=== PATIENT | male | born 1950 | race Caucasian/White ===

== ENCOUNTER 2017-11-08 15:35 | Day surgery (SDC) | payer BC ==
[2017-11-08] MEDS ORDERED: Lidocaine 2% JELLY* 6 ML JELLY TOPICAL ONE (16:23)
[2017-11-08] MEDS ORDERED: Lidocaine 1% INJ* 10 MG/ML 30 ML SDV ONE (16:23)
[2017-11-08] MEDS ORDERED: Midazolam* 1 MG/ML 2 ML VIAL (2 MG) ONE (16:32)
[2017-11-08] MEDS ORDERED: fentaNYL* 50 MCG/ML 2 ML VIAL (100 MCG VIAL) ONE (16:32)
[2017-11-08] MEDS ORDERED: Propofol* 10 MG/ML 20 ML BTL IV PUSH ONE (17:02)
[2017-11-08] MEDS ORDERED: Lidocaine 2% PF * 5 ML VIAL ONE (17:02)
[2017-11-08] MEDS ORDERED: Ondansetron INJ* 2 MG/ML VIAL IV PRN (17:11)
[2017-11-08] MEDS ORDERED: oxyCODONE/Acetamin 5/325 MG* TAB PO PRN (17:11)
[2017-11-08] MEDS ORDERED: DiMENhydriNATE IV* 50 MG/ML VIAL IV PUSH PRN (17:11)
[2017-11-08] MEDS ORDERED: Naloxone* 0.4 MG/ML 1 ML VIAL IV PRN (17:11)
[2017-11-08] MEDS ORDERED: HYDROcodone/ACETAMIN 5-325 MG* 1 TAB PO PRN (17:11)
[2017-11-08] MEDS ORDERED: fentaNYL* 50 MCG/ML 2 ML VIAL (100 MCG VIAL) IV PRN (17:11)
[2017-11-08] MEDS ORDERED: Lidocaine 1% MPF wEPI 200,000* 30 ML SDV ONE (17:18)
--- NOTE | 2017-11-08 17:40 | BRIEFOPN ---
Brief Operative Note - Surgery Procedures: Procedures OPERATIVE REPORT PRE-Anorectal ulcer and rectal bleeding POST-OP: Same, Anorectal mass PROCEDURE: Anorectal exam under anesthesia with biopsies of anal canal and distal rectal mass SURGEON: MD Vincent ANESTHESIA:Local with MAC Dr. Ceja ASST: none IVF: min EBL:min SPECIMEN: Portion of mass to pathology DRAIN: none WOUND CLASS: 4 COMPLICATIONS: none TO PACU
[2017-11-08] MEDS ORDERED: oxyCODONE/Acetamin 5/325 MG* TAB ONE (18:51)
[2017-11-08 18:54] VITALS: BP 124/66
--- NOTE | 2017-11-09 16:03 | OP ---
CC: Dr. Sourav Silva * DATE OF OPERATION: 11/08/17 - [facility] DATE OF : 54 SURGEON: Louis Kaur MD [facility]ST SECOND JOBS: None. ANESTHESIOLOGIST: Dr. Ceja. ANESTHESIA: Local with monitored anesthesia care. PRE-OP DIAGNOSIS: Anal canal ulceration with rectal bleeding. POST-OP DIAGNOSES: 1. Anal canal ulceration with rectal bleeding. 2. Apparent anorectal mass with ulceration. OPERATIVE PROCEDURE: Anorectal exam under anesthesia with biopsy of the anorectal mass. ESTIMATED BLOOD LOSS: Minimal. SPECIMENS: Portions of anal canal mass. COMPLICATIONS: None. DRAINS: None, although a 4x4 gauze was placed just into anal canal. BRIEF HISTORY: Mr. Adonay Ballesteros is a 67-year-old gentleman, HIV positive, who recently had anal canal bleeding with some discomfort that has not healed. He was noted on a limited exam in the office to have a ulceration at about 2 to 3 o'clock position at the anal verge extending into the anal canal and due to discomfort this was not a complete exam. At this point, it is felt that biopsies to rule out malignancy are essential and he is being taken to operating room today for an exam under anesthesia with planned biopsies of this lesion. DESCRIPTION OF PROCEDURE: Written informed consent was obtained. The patient was taken to the operating room, placed in the prone jackknife position. Intravenous sedation was administered and sequential compression devices were placed. The perineum and buttocks were prepped and draped in the usual sterile fashion. Time-out verification was completed. Upon evaluation, it was noted that at about 2 to 3 o'clock position there was a wide crevasse type lesion with a heaped up surrounding tissue starting on the anal verge skin extending into the anal canal and also into the distal rectum. This was quite firm, bled easily and was friable. Multiple biopsies were taken using Allis clamp as well as cautery and a scalpel. These were sent and labeled as such. Examination of the remaining anal canal appeared to be unremarkable. There is no significant hemorrhoidal disease in these areas. Hemostasis was assured and lidocaine gel was placed in the anal canal and a 4x4 gauze was used for packing and for hemostatic purposes. Dry sterile dressings were applied. The patient tolerated the procedure well and was taken to recovery room in stable condition. [id number]/[facility] #: [id number] JIMENEZ
== END 2017-11-08 19:01 | disposition home or self-care (01) ==
LOC: OR 15:35
PROVIDERS: ATTEND Surgery
DX: C21.1 Malignant neoplasm of anal canal (principal); Z21 Asymptomatic human immunodeficiency virus [HIV] infection status; K62.5 Hemorrhage of anus and rectum; G47.33 Obstructive sleep apnea (adult) (pediatric); K21.9 Gastro-esophageal reflux disease without esophagitis
CPT/HCPCS: 88305; 88342; A9270-GY; J2001; J2250; J2704; J3010

== ENCOUNTER 2019-11-21 08:02 | Emergency (ER) | payer BC ==
--- NOTE | 2019-11-21 08:28 | ED ---
Lower Extremity - HPI Summary HPI Summary: Patient is a 69 y/o M presenting to [facility] with complaints of BLE pain and weakness that has been present for the past 2-3 weeks. He states that the pain has been intermittent and waxes and wanes in severity. He also notes that the BLE pain will vary in its location. Pain is characterized as a tightness/ soreness; patient characterizes his weakness as feeling similar to having "overexercised". He notes that he had shovelled snow on 11/04/19 but denies any recent injuries or falls. Swelling, erythema, CP, abdominal pain, fever, cough, chills are denied. However, he does note that he has been SOB with exertion recently. No Hx of sciatica, HTN, diabetes, cardiac disease, rhabdomyolysis, DVT , PE noted. He does have osteoarthritis in his left knee as well as Hx of HLD for which he is on a statin. Home medications and allergies are reviewed. Home Medications Medication Instructions Recorded Confirmed Type Rosuvastatin Calcium [Crestor] 20 mg PO DAILY 08/01/19 11/21/19 History Elviteg/Cob/Emtri/Tenof Alafen 1 tab PO DAILY 11/21/19 11/21/19 History [Genvoya [id number] mg] Finasteride TAB* [Proscar TAB*] 1 mg PO DAILY 11/21/19 11/21/19 History Omeprazole CAP (NF) [Prilosec CAP* 20 mg PO DAILY 11/21/19 11/21/19 History 20 MG] Sertraline* [Zoloft*] 25 mg PO DAILY 11/21/19 11/21/19 History Sulfamethox/Trimethoprim DS* 1 tab PO DAILY 11/21/19 11/21/19 History [Bactrim DS 800/160 TAB*] Tamsulosin CAP* [Flomax CAP*] 0.4 mg PO DAILY 11/21/19 11/21/19 History - History of Current Complaint Chief Complaint: EDExtremityLower Stated Complaint: BILAT LEG PAIN/WEAKNESS PER PT Time Seen by Provider: 11/21/19 08:17 Hx Obtained From: Patient Onset of Pain: Prior to Arrival Onset/Duration: Still Present Severity Currently: Mild Pain Intensity: 3 Pain Scale Used: 0-10 Numeric Timing: Constant, Lasting Weeks Location: Is Discrete @ - BLE Associated Signs And Symptoms: Positive: Weakness - Allergies/Home Medications Allergies/Adverse Reactions: Allergies Allergy/AdvReac Type Severity Reaction Status Date / Time clindamycin [From Cleocin] Allergy Severe Rash And Verified 11/17/17 14:57 Itching Home Medications: Home Medications Rosuvastatin Calcium [Crestor] 20 mg PO DAILY 08/01/19 [History Confirmed ] Elviteg/Cob/Emtri/Tenof Alafen [Genvoya [id number] mg] 1 tab PO DAILY [History Confirmed 11/21/19] Finasteride TAB* [Proscar TAB*] 1 mg PO DAILY 11/21/19 [History Confirmed ] Omeprazole CAP (NF) [Prilosec CAP* 20 MG] 20 mg PO DAILY 11/21/19 [History Confirmed 11/21/19] Sertraline* [Zoloft*] 25 mg PO DAILY 11/21/19 [History Confirmed 11/21/19] Sulfamethox/Trimethoprim DS* [Bactrim DS 800/160 TAB*] 1 tab PO DAILY 11/21/19 [ History Confirmed 11/21/19] Tamsulosin CAP* [Flomax CAP*] 0.4 mg PO DAILY 11/21/19 [History Confirmed ] PMH/Surg Hx/FS Hx/Imm Hx Endocrine/Hematology History: Denies: Hx Diabetes Cardiovascular History: Reports: Hx Hypercholesterolemia Denies: Hx Deep Vein Thrombosis, Hx Embolism, Hx Hypertension, Hx Pacemaker/ ICD Respiratory History: Reports: Hx Sleep Apnea - current biPAP user GI History: Reports: Hx Gastroesophageal Reflux Disease History: Denies: Hx Renal Disease Musculoskeletal History: Reports: Hx Arthritis, Other Musculoskeletal History - no Hx of Sensory History: Denies: Hx Contacts or Glasses, Hx Hearing Aid Opthamlomology History: Denies: Hx Contacts or Glasses Psychiatric History: Denies: Hx Panic Disorder - Cancer History Cancer Type, 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 Ramírez - sedation. 1998- gum [facility] with [facility]ation-[facility]. bunion-right foot. biopsy of rectal lesion Hx Anesthesia Reactions: No Infectious Disease History: No Infectious Disease History: Reports: Hx Hepatitis - 1993-hep A Denies: Traveled Outside the [place] in Last 30 Days - Family History Known Family History: Positive: Other - no FMHx of CVA - Social History Alcohol Use: Occasionally Substance Use Type: Reports: Marijuana Substance Use Comment - Amount & Last Used: 2 cups coffee daily; approx 2 diet sodas daily Smoking Status (MU): Never Smoked Tobacco Review of Systems Negative: Fever, Chills Negative: Chest Pain Positive: Shortness Of Breath - with exertion . Negative: Cough Negative: Abdominal Pain Positive: Myalgia - BLE. Negative: Edema Skin: Other - negative - erythema Positive: Weakness - BLE All Other Systems Reviewed And Are Negative: Yes Physical Exam - Summary Physical Exam Summary: Constitutional: Well-developed, Well-nourished, Alert. (-) Distressed Skin: Warm, Dry; No Erythema HENT: Normocephalic; Atraumatic Eyes: Conjunctiva normal Neck: Musculoskeletal ROM normal neck. (-) JVD, (-) Stridor, (-) Tracheal deviation Cardio: Rhythm regular, rate normal, Heart sounds normal; Intact distal pulses; The pedal pulses are 2+ and symmetric. Radial pulses are 2+ and symmetric. (-) Murmur Pulmonary/Chest wall: Effort normal. (-) Respiratory distress, (-) Wheezes, (-) Rales Abd: Soft, (-) tenderness, (-) Distension, (-) Guarding, (-) Rebound Musculoskeletal: No swelling, contusions, or pain on palpation of BLE Lymph: (-) Cervical adenopathy Neuro: Alert, Oriented x3 Psych: Mood and affect Normal Triage Information Reviewed: Yes Vital Signs On Initial Exam: Initial Vitals Temp Pulse Resp BP Pulse Ox 97.1 F 77 18 162/90 98 11/21/19 08:06 11/21/19 08:06 11/21/19 08:06 11/21/19 08:06 11/21/19 08:06 Vital Signs Reviewed: Yes Procedures - Sedation Patient Received Moderate/Deep Sedation with Procedure: No Diagnostics - Vital Signs Vital Signs Temp Pulse Resp BP Pulse Ox 11/21/19 08:06 97.1 F 77 18 162/90 98 - Laboratory Result Diagrams: 11/21/19 08:35 11/21/19 08:35 Lab Statement: Any lab studies that have been ordered have been reviewed, and results considered in the medical decision making process. - EKG 0842 Cardiac Rate: NL - rate of 68 BPM EKG Rhythm: Sinus Rhythm Summary of EKG Findings: EKG showed sinus rhythm with rate of 68 BPM, no ischemic changes noted. ED physician has reviewed and interpreted this EKG. Lower Extremity Course/Dx - Course Course Of Treatment: Patient is a 69 y/o M presenting to [facility] with complaints of BLE pain and weakness that has been present for the past 2-3 weeks. He states that the pain has been intermittent and waxes and wanes in severity. He also notes that the BLE pain will vary in its location. Pain is characterized as a tightness/soreness; patient characterizes his weakness as feeling similar to having "overexercised". He notes that he had shovelled snow on 11/04/19 but denies any recent injuries or falls. Swelling, erythema, CP, abdominal pain, fever, cough, chills are denied. However, he does note that he has been SOB with exertion recently. No Hx of sciatica, HTN, diabetes, cardiac disease, rhabdomyolysis, DVT, PE noted. He does have osteoarthritis in his left knee as well as Hx of HLD for which he is on a statin. No erythema, swelling, contusions , or pain on palpation of BLE noted. Bloodwork was obtained, abnormal values include WBC 3.3, Hgb 13.6, Hct 40, MPV 6.9, absolute lymphs 0.7, glucose 105. EKG showed sinus rhythm with rate of 68 BPM, no ischemic changes noted. No objective findings on exam. No leg swelling, or erythema. N/V intact. Normal gait. Patient was discharged to home and will followup with PCP. - Diagnoses Provider Diagnoses: Bilateral lower extremity pain Discharge ED - Sign-Out/Discharge Documenting (check all that apply): Patient Departure - discharge - Discharge Plan Condition: Stable Disposition: HOME Patient Education Materials: Leg Pain (ED) Referrals: Sourav Silva MD [Primary Care Provider] - 3 Days Additional Instructions: PLEASE RETURN FOR ANY NEW OR CONCERNING SYMPTOMS. PLEASE FOLLOW UP WITH YOUR PRIMARY CARE PHYSICIAN WITHIN THREE DAYS. - Billing Disposition and Condition Condition: STABLE Disposition: Home - Attestation Statements Document Initiated by Scribe: Yes Documenting Scribe: CALVIN ZAPATA Provider For Whom Scribe is Documenting (Include Credential): NENA PRYOR, Scribe Attestation: I, CALVIN ZAPATA, scribed for NENA PRYOR DO on 11/21/19 at 1300. Scribe Documentation Reviewed: Yes Provider Attestation: The documentation as recorded by the jeanineibCALVIN galindo accurately reflects the service I personally performed and the decisions made by me, NENA PRYOR DO Status of Scribe Document: Viewed
[2019-11-21 08:51] LABS: ABS Eosinophils 0.1 10^3/ul (0-0.6); ABS Lymphocytes 0.7 10^3/ul (1.0-4.8); ABS Monocytes 0.4 10^3/ul (0-0.8); ABS Neutrophils 2.1 10^3/ul (1.5-7.7); Hematocrit 40 % (42-52); Hemoglobin 13.6 g/dL (14.0-18.0); Lymphocyte % 21.1 %; Mean Corpuscular HGB Conc 34 g/dL (31-36); Mean Corpuscular Hemoglobin 31 pg (27-31); Mean Corpuscular Volume 90 fL (80-94); Mean Platelet Volume 6.9 fL (7.4-10.4); Platelet Count 239 10^3/uL (150-450); Red Blood Count 4.45 10^6 /uL (4.18-5.48); Red Cell Distribution Width 14 % (10-15); White Blood Count 3.3 10^3/uL (3.5-10.8)
[2019-11-21 09:02] LABS: Albumin 3.9 g/dL (3.2-5.2); Albumin/Globulin Ratio 1.4 (1-3); C Reactive Protein 3.12 mg/L (<8.01); Calcium 8.6 mg/dL (8.6-10.3); EGFR African American 95.7 (>60); EGFR Non-African American 79.1 (>60); Globulin 2.8 g/dL (2-4); Total Bilirubin 0.3 mg/dL (0.2-1.0); Total Protein 6.7 g/dL (6.4-8.9)
[2019-11-21 10:06] VITALS: BP 0/0
[2019-11-21 10:18] LABS: Erythrocyte Sed Rate 10 mm/Hr (0-19)
== END 2019-11-21 10:05 | disposition home or self-care (01) ==
LOC: ED 08:02
DX: M79.605 Pain in left leg (principal); M79.604 Pain in right leg; R53.1 Weakness; M17.12 Unilateral primary osteoarthritis, left knee; R06.09 Other forms of dyspnea; E78.5 Hyperlipidemia, unspecified; G47.30 Sleep apnea, unspecified; K21.9 Gastro-esophageal reflux disease without esophagitis; Z88.1 Allergy status to other antibiotic agents
CPT/HCPCS: 36415; 80053; 82550; 85025; 85652; 86140; 93005; 99283

== ENCOUNTER 2020-09-17 09:30 | Observation (INO) ==
[~2020-09-17 09:30] MED LIST: Buffered Lidocaine 1% SYRIN 1 ml INTRADERM ONE; Lactated Ringers 1000 ml BAG 1,000 ML IV SCH; Sodium Citrate/Citric Acid LIQ 15 ML UDC PO ONE
[2020-09-17] MEDS ORDERED: ceFAZolin 2 GM PREMIX 2 GM/50 ML BAG ONE (12:53)
[2020-09-17] MEDS ORDERED: Sodium Citrate/Citric Acid LIQ 15 ML UDC ONE (12:53)
[2020-09-17] MEDS ORDERED: Buffered Lidocaine 1% SYRIN 1 ml INTRADERM ONE (12:54)
[2020-09-17] MEDS ORDERED: Propofol 10 mg/ml 100 ML BTL 100 ML ONE (13:38)
[2020-09-17] MEDS ORDERED: Bupivacaine 0.5% SDV PF 30ML VIAL ONE (13:38)
[2020-09-17] MEDS ORDERED: ROPIVACAINE 5 MG/ML 30 ML BTL (0.5%) ONE (13:39)
[2020-09-17] MEDS ORDERED: Midazolam 2 mg/2 ml VIAL 1 mg/ml 2 ml VIAL (2 mg) ONE (14:05)
[2020-09-17] MEDS ORDERED: Glycopyrrolate IV 0.2 MG/ML 1 ML VIAL ONE (15:18)
[2020-09-17] MEDS ORDERED: Ondansetron 4 mg VIAL 2 MG/ML 2 ml VIAL IV PRN ×2 (15:33→15:43)
[2020-09-17] MEDS ORDERED: HYDROmorphone 1 MG/1 ML SYRINGE IV PRN (15:33)
[2020-09-17] MEDS ORDERED: Naloxone 0.4 mg VIAL 0.4 mg/ml 1 ml VIAL IV PRN (15:33)
[2020-09-17] MEDS ORDERED: diPHENhydraMINE 25 mg TAB PO PRN (15:43)
[2020-09-17] MEDS ORDERED: Ondansetron ODT 4 mg TAB 4 MG TAB PO PRN (15:43)
[2020-09-17] MEDS ORDERED: diPHENhydraMINE IV 50 MG/ML 1 ml VIAL (BENADRYL) IV PRN (15:43)
[2020-09-17] MEDS ORDERED: Lactulose 30 ml UDC PO PRN (15:43)
[2020-09-17] MEDS ORDERED: Morphine 2 MG/ML SYRINGE IV PRN (15:43)
[2020-09-17] MEDS ORDERED: Magnesium Hydroxide LIQ 30 ML UDC PO PRN (15:43)
[2020-09-17] MEDS ORDERED: Phenylephrine IV 10 MG/ML 1 ml VIAL ONE (15:47)
[2020-09-17] MEDS ORDERED: fentaNYL 100 mcg/2 ml 50 MCG/ML VIAL ONE (17:35)
[2020-09-17] MEDS: fentaNYL 100 mcg/2 ml 50 MCG/ML VIAL IV PRN ×3 (17:36→18:18)
[2020-09-17] MEDS ORDERED: PTO:Bictegravir/Emtricit/Tenofov 1 TABLET PO SCH (18:00)
[2020-09-17] MEDS: Lactated Ringers 1000 ml BAG 1,000 ML IV SCH (18:39)
[2020-09-17] MEDS: Magnesium Hydroxide LIQ 30 ML UDC PO SCH (20:23)
[2020-09-17] MEDS ORDERED: NS 0.9% 50 ML 50 ML ONE (21:41)
[2020-09-17] MEDS: ceFAZolin 1 GM ADVAN 1 GM in NS 0.9% 50 ML 50 ML IVPB SCH (21:48)
[2020-09-18] MEDS: Lactated Ringers 1000 ml BAG 1,000 ML IV SCH (04:31)
[2020-09-18] MEDS: ceFAZolin 1 GM ADVAN 1 GM in NS 0.9% 50 ML 50 ML IVPB SCH ×2 (05:45→13:41)
[2020-09-18 06:52] LABS: Hematocrit 35 % (42-52); Mean Platelet Volume 7.2 fL (7.4-10.4); Platelet Count 193 10^3/uL (150-450)
[2020-09-18 07:26] LABS: BUN/Creatinine Ratio 12.1 (8-20); Calcium 8.3 mg/dL (8.6-10.3); EGFR Non-African American 62.8 (>60); Potassium 4.6 mmol/L (3.5-5.0)
[2020-09-18] MEDS ORDERED: Vitamin THERAPEUTIC TAB PO SCH (09:00)
[2020-09-18] MEDS ORDERED: Finasteride(ALOPECIA) 1 mg(NF) PO SCH (09:00)
[2020-09-18] MEDS ORDERED: Sulfamethox/Trimethoprim DS TAB 800/160 mg PO SCH (09:00)
[2020-09-18] MEDS: Magnesium Hydroxide LIQ 30 ML UDC PO SCH (09:33)
[2020-09-18 11:09] VITALS: BP 139/60
== END 2020-09-18 14:25 | disposition home or self-care (01) ==
LOC: INTOOBSV 12:58 → AA 12:58 → SSU 15:43
PROVIDERS: ADMIT Orthopaedic Surgery Adult Reconstructive Orthopaedic Surgery; ATTEND Orthopaedic Surgery Adult Reconstructive Orthopaedic Surgery

== ENCOUNTER 2021-03-20 09:00 | Observation (INO) ==
[2021-04-17] MEDS ORDERED: Buffered Lidocaine 1% SYRIN 1 ml INTRADERM ONE (06:00)
[2021-04-17] MEDS ORDERED: Lactated Ringers 1000 ml BAG 1,000 ML IV SCH (06:00)
[2021-04-17] MEDS ORDERED: ceFAZolin 2 GM in NS PREMIX 2 GM/100 ML BAG IVPB ONE (12:57)
[2021-04-17] MEDS ORDERED: ceFAZolin 1 GM ADVAN 1 GM ADDV.VIAL IVPB ONE (12:57)
[2021-04-17] MEDS ORDERED: Dexamethasone IV 4 MG/ML VIAL 1 ml VIAL ONE ×2 (13:24→15:47)
[2021-04-17] MEDS ORDERED: Bupivacaine 0.5% SDV PF 30ML VIAL ONE (13:24)
[2021-04-17] MEDS ORDERED: Midazolam 2 mg/2 ml VIAL 1 mg/ml 2 ml VIAL (2 mg) ONE (13:57)
[2021-04-17] MEDS ORDERED: Ondansetron 4 mg VIAL 2 MG/ML 2 ml VIAL ONE (13:58)
[2021-04-17] MEDS ORDERED: fentaNYL 100 mcg/2 ml 50 MCG/ML VIAL ONE (13:58)
[2021-04-17] MEDS ORDERED: Propofol 10 mg/ml 100 ML BTL 100 ML ONE (14:02)
[2021-04-17] MEDS ORDERED: Lidocaine 1% MPF 5 ML VIAL ONE (14:05)
[2021-04-17] MEDS ORDERED: Ropivacaine 5 MG/ML 20 ML VIAL 0.5% (100 MG) ONE (14:30)
[2021-04-17] MEDS ORDERED: Magnesium Hydroxide LIQ 30 ML UDC PO PRN (15:50)
[2021-04-17] MEDS ORDERED: Morphine 2 MG/ML SYRINGE IV PRN (15:50)
[2021-04-17] MEDS ORDERED: diPHENhydraMINE 25 mg TAB PO PRN (15:50)
[2021-04-17] MEDS ORDERED: Ondansetron ODT 4 mg TAB 4 MG TAB PO PRN (15:50)
[2021-04-17] MEDS ORDERED: Ondansetron 4 mg VIAL 2 MG/ML 2 ml VIAL IV PRN (15:50)
[2021-04-17] MEDS ORDERED: diPHENhydraMINE IV 50 MG/ML 1 ml VIAL (BENADRYL) IV PRN ×2 (15:50→16:39)
[2021-04-17] MEDS ORDERED: Lactulose 30 ml UDC PO PRN (15:50)
[2021-04-17] MEDS ORDERED: Naloxone 0.4 mg VIAL 0.4 mg/ml 1 ml VIAL IV PRN (16:39)
[2021-04-17] MEDS ORDERED: fentaNYL 100 mcg/2 ml 50 MCG/ML VIAL IV PRN (16:39)
[2021-04-17] MEDS ORDERED: DiMENhydriNATE IV 50 mg/ml 1 ml VIAL IV PUSH PRN (16:39)
[2021-04-17] MEDS ORDERED: SILDENAFIL 25 MG PO PRN (19:01)
[2021-04-17] MEDS: Lactated Ringers 1000 ml BAG 1,000 ML IV SCH (20:38)
[2021-04-17] MEDS ORDERED: PTO:Bictegravir/Emtricit/Tenofov 1 TABLET PO SCH (21:00)
[2021-04-17] MEDS: Magnesium Hydroxide LIQ 30 ML UDC PO SCH (23:02)
[2021-04-18] MEDS: ceFAZolin 1 GM ADVAN 1 GM in NS 0.9% 50 ML 50 ML IVPB SCH ×3 (00:33→13:48)
[2021-04-18] MEDS: Lactated Ringers 1000 ml BAG 1,000 ML IV SCH (05:07)
[2021-04-18 06:36] LABS: Hematocrit 36 % (42-52); Hemoglobin 12.1 g/dL (14.0-18.0); Mean Platelet Volume 6.8 fL (7.4-10.4); Platelet Count 252 10^3/uL (150-450)
[2021-04-18 06:56] LABS: Calcium 8.6 mg/dL (8.6-10.3); EGFR Non-African American 75.2 (>60); Potassium 4.3 mmol/L (3.5-5.0)
[2021-04-18] MEDS ORDERED: Finasteride(ALOPECIA) 1 mg(NF) PO SCH (09:00)
[2021-04-18] MEDS ORDERED: Sulfamethox/Trimethoprim DS TAB 800/160 mg PO SCH (09:00)
[2021-04-18] MEDS ORDERED: Vitamin THERAPEUTIC TAB PO SCH (09:00)
[2021-04-18] MEDS: Magnesium Hydroxide LIQ 30 ML UDC PO SCH (09:05)
[2021-04-18 12:27] VITALS: BP 167/81
== END 2021-04-18 15:15 | disposition home or self-care (01) ==
LOC: AA 04-17 12:48 → INTOOBSV 04-17 12:48 → SSU 04-17 15:50
PROVIDERS: ADMIT Orthopaedic Surgery Adult Reconstructive Orthopaedic Surgery; ATTEND Orthopaedic Surgery Adult Reconstructive Orthopaedic Surgery

== ENCOUNTER 2021-11-06 12:00 | Observation (INO) ==
[2021-11-13] MEDS ORDERED: HYDROcodone/ACETAMIN 5/325 mg TAB PO PRN (10:20)
[2021-11-13] MEDS ORDERED: DiMENhydriNATE IV 50 mg/ml 1 ml VIAL IV PUSH ONE (10:20)
[2021-11-13] MEDS ORDERED: Ondansetron 4 mg VIAL 2 MG/ML 2 ml VIAL IV PRN (10:20)
[2021-11-13] MEDS ORDERED: Naloxone 0.4 mg VIAL 0.4 mg/ml 1 ml VIAL IV PRN (10:20)
[2021-11-13] MEDS ORDERED: fentaNYL 100 mcg/2 ml 50 MCG/ML VIAL IV PRN (10:20)
[2021-11-13] MEDS ORDERED: Metoclopramide 5 MG/ML VIAL (10 mg) IV PRN (10:20)
[2021-11-13] MEDS ORDERED: Buffered Lidocaine 1% SYRIN 1 ml INTRADERM ONE (10:20)
[2021-11-13] MEDS ORDERED: Lactated Ringers 1000 ml BAG 1,000 ML IV SCH (11:00)
[2021-11-14] MEDS ORDERED: Bupivacaine 0.5% SDV PF 30ML VIAL ONE (12:19)
[2021-11-14] MEDS ORDERED: Lidocaine 2% PF 5 ML VIAL ONE (12:19)
[2021-11-14] MEDS ORDERED: Propofol 10 MG/ML 20 ML BTL ONE (12:19)
[2021-11-14] MEDS ORDERED: Ondansetron 4 mg VIAL 2 MG/ML 2 ml VIAL ONE (12:19)
[2021-11-14] MEDS ORDERED: Dexamethasone IV 4 MG/ML VIAL 1 ml VIAL ONE (12:19)
[2021-11-14] MEDS ORDERED: fentaNYL 100 mcg/2 ml 50 MCG/ML VIAL ONE (12:19)
[2021-11-14] MEDS ORDERED: DiMENhydriNATE IV 50 mg/ml 1 ml VIAL ONE (12:22)
[2021-11-14] MEDS ORDERED: ceFAZolin 2 GM in NS PREMIX 2 GM/100 ML BAG IVPB ONE (12:22)
[2021-11-14] MEDS ORDERED: Ropivacaine 5 MG/ML 20 ML VIAL 0.5% (100 MG) ONE ×2 (13:10→14:15)
[2021-11-14] MEDS ORDERED: Magnesium Hydroxide LIQ 30 ML UDC PO PRN (15:05)
[2021-11-14] MEDS ORDERED: Ondansetron ODT 4 mg TAB 4 MG TAB PO PRN (15:05)
[2021-11-14] MEDS ORDERED: diPHENhydraMINE IV 50 MG/ML 1 ml VIAL (BENADRYL) IV PRN (15:05)
[2021-11-14] MEDS ORDERED: diPHENhydraMINE 25 mg TAB PO PRN (15:05)
[2021-11-14] MEDS ORDERED: Ondansetron 4 mg VIAL 2 MG/ML 2 ml VIAL IV PRN (15:05)
[2021-11-14] MEDS ORDERED: Lactulose 30 ml UDC PO PRN (15:05)
[2021-11-14] MEDS ORDERED: Lactated Ringers 1000 ml BAG 1,000 ML IV SCH (16:00)
[2021-11-14] MEDS ORDERED: PTO: Bictegravir/Emtricit/Tenofov 1 TABLET PO SCH (21:00)
[2021-11-14] MEDS: Magnesium Hydroxide LIQ 30 ML UDC PO SCH (21:03)
[2021-11-14] MEDS: ceFAZolin 1 GM ADVAN 1 GM in NS 0.9% 50 ML 50 ML IVPB SCH (22:29)
[2021-11-15 05:19] LABS: Hematocrit 33 % (42-52); Hemoglobin 11.1 g/dL (14.0-18.0); Platelet Count 249 10^3/uL (150-450)
[2021-11-15 05:34] LABS: Calcium 8.3 mg/dL (8.6-10.3); eGFR CKD-EPI 77.7 (>60)
[2021-11-15] MEDS: ceFAZolin 1 GM ADVAN 1 GM in NS 0.9% 50 ML 50 ML IVPB SCH ×2 (06:00→13:24)
[2021-11-15] MEDS: Magnesium Hydroxide LIQ 30 ML UDC PO SCH (08:35)
[2021-11-15] MEDS ORDERED: Sulfamethox/Trimethoprim DS TAB 800/160 mg PO SCH (09:00)
[2021-11-15] MEDS ORDERED: Vitamin THERAPEUTIC TAB PO SCH (09:00)
[2021-11-15] MEDS ORDERED: FINASTERIDE 1 MG PO SCH (09:00)
[2021-11-15 11:43] VITALS: BP 157/77
== END 2021-11-15 14:39 | disposition home or self-care (01) ==
LOC: AA 11-14 12:11 → INTOOBSV 11-14 12:11 → SSU 11-14 17:59
PROVIDERS: ADMIT Orthopaedic Surgery Adult Reconstructive Orthopaedic Surgery; ATTEND Orthopaedic Surgery Adult Reconstructive Orthopaedic Surgery

== ENCOUNTER 2022-04-23 07:30 | Observation (INO) ==
[2022-07-17] MEDS ORDERED: Buffered Lidocaine 1% SYRIN 1 ml INTRADERM ONE (06:00)
[2022-07-17] MEDS ORDERED: Lactated Ringers 1000 ml BAG 1,000 ML IV SCH ×2 (06:00→17:00)
[2022-07-17] MEDS ORDERED: Naloxone 0.4 mg VIAL 0.4 mg/ml 1 ml VIAL IV PRN (10:21)
[2022-07-17] MEDS ORDERED: HYDROmorphone 1 MG/1 ML SYRINGE IV PRN (10:21)
[2022-07-17] MEDS ORDERED: Prochlorperazine 5 mg/ml 2 ml VIAL (10 mg) IV PRN (10:21)
[2022-07-17] MEDS ORDERED: Lidocaine 2% PF 5 ML VIAL ONE (10:37)
[2022-07-17] MEDS ORDERED: Ketamine HCL 50 mg/ml 10 ml VIAL (500 MG) ONE (10:37)
[2022-07-17] MEDS ORDERED: Propofol 10 MG/ML 20 ML BTL ONE ×4 (10:40→16:10)
[2022-07-17] MEDS ORDERED: ceFAZolin 2 GM in NS PREMIX 2 GM/100 ML BAG IVPB ONE (12:11)
[2022-07-17] MEDS ORDERED: fentaNYL 100 mcg/2 ml 50 MCG/ML VIAL ONE (13:38)
[2022-07-17] MEDS ORDERED: Sterile Water for Inj 10 ML ONE (13:55)
[2022-07-17] MEDS ORDERED: Labetalol IV 5 MG/ML 20 ml VIAL ONE (14:28)
[2022-07-17] MEDS ORDERED: hydrALAZINE 20 mg/ml 1 ML Vial IV ONE (14:36)
[2022-07-17] MEDS ORDERED: Ondansetron 4 mg VIAL 2 MG/ML 2 ml VIAL ONE (14:38)
[2022-07-17] MEDS ORDERED: fentaNYL 250 mcg/5 ml 50 MCG/ML 5 ml VIAL (250 MCG) ONE (16:15)
[2022-07-17] MEDS ORDERED: Ondansetron 4 mg VIAL 2 MG/ML 2 ml VIAL IV PRN (16:45)
[2022-07-17] MEDS ORDERED: Ondansetron ODT 4 mg TAB 4 MG TAB PO PRN (16:45)
[2022-07-17] MEDS ORDERED: Morphine 2 MG/ML SYRINGE IV PRN (16:45)
[2022-07-17] MEDS ORDERED: Lactulose 30 ml UDC PO PRN (16:45)
[2022-07-17] MEDS ORDERED: Magnesium Hydroxide LIQ 30 ML UDC PO PRN (16:45)
[2022-07-17] MEDS ORDERED: Morphine 2 MG/ML SYRINGE ONE (20:37)
[2022-07-17] MEDS ORDERED: PTO: Bictegravir/Emtricit/Tenofov 1 TABLET PO SCH (21:00)
[2022-07-17] MEDS: Magnesium Hydroxide LIQ 30 ML UDC PO SCH (21:33)
[2022-07-17] MEDS: ceFAZolin 1 GM ADVAN 1 GM in NS 0.9% 50 ML 50 ML IVPB SCH (22:57)
[2022-07-18] MEDS: ceFAZolin 1 GM ADVAN 1 GM in NS 0.9% 50 ML 50 ML IVPB SCH ×2 (06:15→13:44)
[2022-07-18 08:24] LABS: Hematocrit 33 % (42-52); Hemoglobin 10.2 g/dL (14.0-18.0); Mean Platelet Volume 6.9 fL (7.4-10.4); Platelet Count 266 10^3/uL (150-450)
[2022-07-18] MEDS: Magnesium Hydroxide LIQ 30 ML UDC PO SCH (08:46)
[2022-07-18] MEDS ORDERED: Vitamin THERAPEUTIC TAB PO SCH (09:00)
[2022-07-18] MEDS ORDERED: Sulfamethox/Trimethoprim DS TAB 800/160 mg PO SCH (09:00)
[2022-07-18 09:02] LABS: Calcium 8.5 mg/dL (8.6-10.3); Potassium 4.4 mmol/L (3.5-5.0); eGFR CKD-EPI 66.8 (>60)
[2022-07-18] MEDS ORDERED: Influenza vaccine *QUAD* *2022-23* 0.5 ML SYRINGE IM ONE (15:00)
[2022-07-18 16:52] VITALS: BP 114/70
== END 2022-07-18 17:55 | disposition home or self-care (01) ==
LOC: AA 07-17 12:03 → INTOOBSV 07-17 12:03 → SSU 07-17 19:10
PROVIDERS: ADMIT Orthopaedic Surgery Adult Reconstructive Orthopaedic Surgery; ATTEND Orthopaedic Surgery Adult Reconstructive Orthopaedic Surgery